=== PATIENT | female | born 1955 | race African-American/Black ===

== ENCOUNTER 2024-02-06 10:28 | Inpatient (IN) | payer OTHER ==
[2024-02-06] MEDS: SODIUM CHLORIDE 0.9% 500 ML INFUS.BAG IV ONE (12:02)
[2024-02-06] MEDS: ACETAMINOPHEN 500 MG TABLET (FP) PO ONE (12:03)
[2024-02-06] MEDS: ACETAMINOPHEN 1000 MG/100 ML BAG IVPB ONE (12:03)
[2024-02-06] MEDS ORDERED: ACETAMINOPHEN 325 MG TABLET (FP) ONE (12:04)
[2024-02-06 12:44] LABS: BASO % 0.3 % (0-2.0); EOS % 0.2 % (0-4.5); HEMATOCRIT 31.5 % (32.4-45.2); HEMOGLOBIN 10.2 GM/dL (10.7-15.3); LYMPH % 16.8 % (8-40); MCH 29.1 pg (25.7-33.7); MCHC 32.3 g/dl (32.0-36.0); MEAN CELL VOLUME 90.1 fl (80-96); MEAN PLT VOLUME 9.3 fl (7.5-11.1); MONO % 6.6 % (3.8-10.2); NEUT % 76.1 % (42.8-82.8); PLATELET COUNT 282 10^3/uL (134-434); RBC 3.49 M/mm3 (3.60-5.2); RDW 15.7 % (11.6-15.6); WHITE BLOOD COUNT 6.3 K/mm3 (4.0-10.0)
[2024-02-06 12:47] LABS: POTASSIUM 3.5 mmol/L (3.5-5.1)
[2024-02-06 12:50] LABS: ALBUMIN 2.8 g/dl (3.4-5.0); BLOOD UREA NITROGEN 42.3 mg/dL (7-18); MAGNESIUM 2.6 mg/dL (1.8-2.4)
[2024-02-06 12:53] LABS: BILIRUBIN,TOTAL 0.3 mg/dL (0.2-1); CREATININE 3.5 mg/dL (0.55-1.3)
[2024-02-06 12:55] LABS: TOT PROT 6.9 g/dl (6.4-8.2)
[2024-02-06] MEDS ORDERED: POTASSIUM CHLORIDE TABS 20 MEQ TABLET.ER (FP) PO ONE (13:56)
[2024-02-06] MEDS: POTASSIUM CHLORIDE ORAL LIQUID 20 MEQ/15 ML PO ONE (13:58)
[2024-02-06 16:00] LABS: POTASSIUM 3.4 mmol/L (3.5-5.1)
[2024-02-06 16:03] LABS: BLOOD UREA NITROGEN 42.8 mg/dL (7-18); CALCIUM 9.2 mg/dL (8.5-10.1); MAGNESIUM 2.6 mg/dL (1.8-2.4)
[2024-02-06 16:05] LABS: CREATININE 3.4 mg/dL (0.55-1.3)
[2024-02-06] MEDS: ATORVASTATIN CA 20 MG TABLET (FP) PO SCH (23:15)
[2024-02-07 07:45] LABS: BASO % 0.7 % (0-2.0); HEMATOCRIT 31.3 % (32.4-45.2); HEMOGLOBIN 10.1 GM/dL (10.7-15.3); LYMPH % 23.1 % (8-40); MCH 29.2 pg (25.7-33.7); MCHC 32.3 g/dl (32.0-36.0); MEAN CELL VOLUME 90.5 fl (80-96); MEAN PLT VOLUME 8.5 fl (7.5-11.1); NEUT % 65.2 % (42.8-82.8); PLATELET COUNT 194 10^3/uL (134-434); RBC 3.46 M/mm3 (3.60-5.2); RDW 15.4 % (11.6-15.6); WHITE BLOOD COUNT 5.3 K/mm3 (4.0-10.0)
[2024-02-07 08:09] LABS: IRON SERUM 31 ug/dL (50-175); TOTAL IRON BINDING CAPACITY 132 ug/dL (250-450)
[2024-02-07 08:16] LABS: POTASSIUM 3.7 mmol/L (3.5-5.1)
[2024-02-07 08:18] LABS: ALBUMIN 2.8 g/dl (3.4-5.0); BLOOD UREA NITROGEN 41.3 mg/dL (7-18); CALCIUM 9.1 mg/dL (8.5-10.1); MAGNESIUM 2.6 mg/dL (1.8-2.4)
[2024-02-07 08:21] LABS: CREATININE 3.1 mg/dL (0.55-1.3)
[2024-02-07 08:23] LABS: BILIRUBIN,TOTAL 0.4 mg/dL (0.2-1)
[2024-02-07 08:24] LABS: TOT PROT 6.8 g/dl (6.4-8.2)
[2024-02-07] MEDS: ACETAMINOPHEN 325 MG TABLET (FP) PO PRN (09:15)
[2024-02-07] MEDS: amLODIPine BESYLATE 10 MG TABLET (FP) PO SCH (09:15)
[2024-02-07] MEDS: IRON SUCROSE INJECTION 200 MG in SODIUM CHLORIDE 100 ML IVPB ONE (10:38)
[2024-02-07 11:12] LABS: PH,URINE 5.5 (5.0-8.0); URINE APPEARANCE Clear; URINE BILIRUBIN Negative (NEGATIVE); URINE COLOR Yellow; URINE GLUCOSE (UA) Negative (NEGATIVE); URINE KETONE Negative (NEGATIVE); URINE LEUK ESTERASE Trace (NEGATIVE); URINE NITRITE Negative (NEGATIVE); URINE PROTEIN 1+ (NEGATIVE); URINE UROBILINOGEN 0.2 mg/dL (0.2-1.0)
[2024-02-07 13:15] LABS: EPI CELLS 16 /uL (0-25.1); HYALINE CASTS 0.4 /uL (0-3.1); URINE BACTERIA 10185 /uL (0-1359); URINE RBC 220 /uL (0-23.9); URINE WBC 40 /uL (0-25.8)
[2024-02-07] MEDS: SODIUM CHLORIDE 0.45% 1,000 ML IV SCH (14:08)
[2024-02-07] MEDS: BISMUTH SUBSALICYLATE 524 MG/30 ML PO ONE (21:25)
[2024-02-08] MEDS: ENOXAPARIN NA (PORCINE) 60 MG/0.6 ML DISP.SYRIN SQ STA (07:43)
[2024-02-08 10:57] LABS: POTASSIUM 3.4 mmol/L (3.5-5.1)
[2024-02-08 10:58] LABS: CALCIUM 8.5 mg/dL (8.5-10.1)
[2024-02-08 10:59] LABS: ALBUMIN 2.3 g/dl (3.4-5.0); BLOOD UREA NITROGEN 31.2 mg/dL (7-18)
[2024-02-08 11:02] LABS: CREATININE 2.6 mg/dL (0.55-1.3)
[2024-02-08 11:04] LABS: BILIRUBIN,TOTAL 0.3 mg/dL (0.2-1)
[2024-02-08] MEDS: POTASSIUM CHLORIDE ORAL LIQUID 20 MEQ/15 ML PO ONE (17:12)
[2024-02-09] MEDS ORDERED: INSULIN (LEVEMIR) 100 UNITS/ML UNITS SQ ONE (07:25)
[2024-02-09 08:01] LABS: BASO % 0.6 % (0-2.0); HEMATOCRIT 27.9 % (32.4-45.2); LYMPH % 28.9 % (8-40); MCH 29.3 pg (25.7-33.7); MCHC 32.5 g/dl (32.0-36.0); MEAN CELL VOLUME 90.3 fl (80-96); MEAN PLT VOLUME 8.6 fl (7.5-11.1); MONO % 9.8 % (3.8-10.2); NEUT % 53.7 % (42.8-82.8); PLATELET COUNT 216 10^3/uL (134-434); RBC 3.08 M/mm3 (3.60-5.2); RDW 15.9 % (11.6-15.6); WHITE BLOOD COUNT 4.6 K/mm3 (4.0-10.0)
[2024-02-09 08:16] LABS: POTASSIUM 3.7 mmol/L (3.5-5.1)
[2024-02-09 08:18] LABS: ALBUMIN 2.2 g/dl (3.4-5.0); BLOOD UREA NITROGEN 27.6 mg/dL (7-18)
[2024-02-09 08:21] LABS: CREATININE 2.4 mg/dL (0.55-1.3)
[2024-02-09 08:24] LABS: BILIRUBIN,TOTAL 0.3 mg/dL (0.2-1); TOT PROT 5.4 g/dl (6.4-8.2)
[2024-02-09] MEDS: IRON SUCROSE INJECTION 200 MG in SODIUM CHLORIDE 100 ML IVPB ONE (09:13)
[2024-02-09] MEDS: ENOXAPARIN NA (PORCINE) 60 MG/0.6 ML DISP.SYRIN SQ SCH (09:34)
[2024-02-11] MEDS: APIXABAN 5 MG TABLET PO SCH (13:05)
[2024-02-12 09:20] LABS: POTASSIUM 3.4 mmol/L (3.5-5.1)
[2024-02-12 09:34] LABS: ALBUMIN 2.5 g/dl (3.4-5.0); BLOOD UREA NITROGEN 17.5 mg/dL (7-18); CALCIUM 8.6 mg/dL (8.5-10.1)
[2024-02-12 09:38] LABS: TOT PROT 6.4 g/dl (6.4-8.2)
[2024-02-12 09:39] LABS: BILIRUBIN,TOTAL 0.4 mg/dL (0.2-1)
[2024-02-12] MEDS: MINERAL OIL/PET HY-PHL TOPICAL OINTMENT 454 GM JAR TP SCH (11:34)
[2024-02-12] MEDS: POTASSIUM CHLORIDE ORAL LIQUID 20 MEQ/15 ML PO ONE (17:31)
[2024-02-13 10:02] LABS: HEMATOCRIT 31.9 % (32.4-45.2); HEMOGLOBIN 10.4 GM/dL (10.7-15.3); MCH 29.3 pg (25.7-33.7); MCHC 32.6 g/dl (32.0-36.0); MEAN CELL VOLUME 89.8 fl (80-96); MEAN PLT VOLUME 8.7 fl (7.5-11.1); PLATELET COUNT 348 10^3/uL (134-434); RBC 3.56 M/mm3 (3.60-5.2); RDW 15.6 % (11.6-15.6)
[2024-02-13 10:27] LABS: POTASSIUM 3.9 mmol/L (3.5-5.1)
[2024-02-13 10:30] LABS: CALCIUM 8.7 mg/dL (8.5-10.1)
[2024-02-13 10:31] LABS: BLOOD UREA NITROGEN 16.1 mg/dL (7-18)
[2024-02-13 10:34] LABS: CREATININE 1.9 mg/dL (0.55-1.3)
[2024-02-13 12:31] VITALS: BMI 19.8
[2024-02-16 13:26] VITALS: PULSE 79
[2024-02-16 13:53] VITALS: BP 137/77; RESP 17; TEMP 97.7
== END 2024-02-16 15:00 | DRG 300 ==
LOC: JER 10:28 → JERBED 15:10 → J7W 19:45 → OBSVTOIN 02-09 08:42
PROVIDERS: ADMIT Internal Medicine; ATTEND Internal Medicine
DX: I82.412 Acute embolism and thrombosis of left femoral vein (principal); N17.9 Acute kidney failure, unspecified; M17.12 Unilateral primary osteoarthritis, left knee; M21.062 Valgus deformity, not elsewhere classified, left knee; I12.9 Hypertensive chronic kidney disease with stage 1 through stage 4 chronic kidney disease, or unspecified chronic kidney disease; N18.9 Chronic kidney disease, unspecified; E87.6 Hypokalemia; E78.5 Hyperlipidemia, unspecified; R26.81 Unsteadiness on feet; D64.9 Anemia, unspecified; W18.30XA Fall on same level, unspecified, initial encounter; Y92.098 Other place in other non-institutional residence as the place of occurrence of the external cause; Y99.9 Unspecified external cause status
CPT/HCPCS: 36415; 73502-TC-LT-FY; 73562-TC-LT-FY; 73610-TC-LT-FY; 73630-TC-LT; 76775-TC; 80048; 80053; 81003; 82728; 83540; 83550; 83735; 84443; 85025; 85027; 87086; 87186; 93005; 93010; 93970-TC; 97116-GP; 97161-GP; 99285-25; G0378; J1756